=== PATIENT | male | born 1970 | race African-American/Black ===

== ENCOUNTER 2019-03-23 09:07 | Emergency (ER) | payer OTHER ==
[~2019-03-23] VITALS: Ht 190.5 cm; Wt 127.5 kg
[2019-03-23] MEDS ORDERED: TETANUS/DIPHTHERIA TOX ADULT 0.5 ML SYR ONE (09:49)
--- NOTE | 2019-03-23 10:04 | Diagnostic Imaging Report ---
Exam: Left fourth finger radiographs-3 views History: Smashed fourth finger. Comparison: None. Findings/Impression: Acute, minimally displaced, comminuted fracture of the fourth finger distal phalangeal tuft. Surrounding mild soft tissue edema. Bony alignment is otherwise unremarkable. Signed by: Dr. Ayden Enriquez MD on 03/23/2019 10:00 AM
[2019-03-23] MEDS ORDERED: TYLENOL # 31 EA PO (10:05)
[2019-03-23] MEDS ORDERED: KEFLEX500 MG PO (10:05)
[2019-03-23] MEDS ORDERED: TETANUS/DIPHTHERIA TOX ADULT 0.5 ML SYR IM ONE (10:15)
--- OUTSIDE RECORDS SUMMARY | 2019-03-28 12:21 | XMS REPORT ---
Author Author [facility] Address Unknown Phone Unavailable Care Team Providers Care Astrobiologist Name Role Phone Puja LAKHANI Unavailable Unavailable Problems This patient has no known problems. Allergies, Adverse Reactions, Alerts This patient has no known allergies or adverse reactions. Medications This patient has no known medications. Encounters Start Date/Time End Date/Time Encounter Type Admission Type Attending [facility] Care Department Encounter ID 2018-03-15 00:00:00 2018-03-15 00:00:00 Outpatient [facility] [id number] 2018-03-06 00:00:00 2018-03-06 00:00:00 Outpatient [facility] [id number] 2018-03-05 00:00:00 2018-03-05 00:00:00 Outpatient [facility] [id number] 2018-02-15 10:01:28 2018-02-15 10:01:28 Outpatient [facility] [id number] 2018-02-06 00:00:00 2018-02-06 00:00:00 Outpatient [facility] [id number] 2018-02-04 12:10:07 2018-02-04 12:10:07 Outpatient [facility] [id number] 2018-02-04 09:50:33 2018-02-04 09:50:33 Outpatient [facility] [id number] 2017-12-21 13:07:15 2017-12-21 13:07:15 Outpatient [facility] [id number] 2017-12-21 12:21:18 2017-12-21 12:21:18 Outpatient [facility] [id number] 2017-12-21 10:37:40 2017-12-21 10:37:40 Outpatient [facility] [id number] 2017-12-20 00:00:00 2017-12-20 00:00:00 Outpatient [facility] [id number] 2017-12-12 00:00:00 2017-12-12 00:00:00 Outpatient [facility] [id number] 2017-10-31 00:00:00 2017-10-31 00:00:00 Outpatient [facility] [id number] 2017-09-27 00:00:00 2017-09-27 00:00:00 Outpatient [facility] [id number] 2017-09-12 13:59:45 2017-09-12 13:59:45 Outpatient [facility] [id number] 2017-09-12 13:46:58 2017-09-12 13:46:58 Outpatient [facility] [id number] 2017-09-07 00:00:00 2017-09-07 00:00:00 Outpatient [facility] [id number] 2017-09-05 08:56:48 2017-09-05 08:56:48 Outpatient [facility] [id number] 2017-07-31 14:05:40 2017-07-31 14:05:40 Outpatient [facility] [id number] 2017-07-26 00:00:00 2017-07-26 00:00:00 Outpatient [facility] [id number] 2017-07-20 13:30:22 2017-07-20 13:30:22 Outpatient [facility] [id number] 2017-07-17 14:15:46 2017-07-17 14:15:46 Outpatient [facility] [id number] 2017-07-04 00:00:00 2017-07-04 00:00:00 Outpatient [facility] [id number] 2017-06-20 08:10:04 2017-06-20 08:10:04 Outpatient [facility] [id number] 2017-06-13 10:25:00 2017-06-13 10:25:00 Outpatient [facility] [id number] 2017-05-16 00:00:00 2017-05-16 00:00:00 Outpatient [facility] [id number] 2017-04-24 00:00:00 2017-04-24 00:00:00 Outpatient [facility] [id number] 2017-04-24 00:00:00 2017-04-24 00:00:00 Outpatient [facility] [id number] 2017-04-24 00:00:00 2017-04-24 00:00:00 Outpatient [facility] [id number] 2017-04-20 00:00:00 2017-04-20 00:00:00 Outpatient [facility] [id number] 2017-04-18 08:55:52 2017-04-18 08:55:52 Outpatient [facility] [id number] 2017-03-27 00:00:00 2017-03-27 00:00:00 Outpatient [facility] [id number] 2017-03-26 00:00:00 2017-03-26 00:00:00 Outpatient [facility] [id number] 2017-03-23 00:00:00 2017-03-23 00:00:00 Outpatient [facility] [id number] 2017-03-20 10:38:34 2017-03-20 10:38:34 Outpatient [facility] [id number] 2017-03-15 00:00:00 2017-03-15 00:00:00 Outpatient [facility] [id number] 2017-03-08 00:00:00 2017-03-08 00:00:00 Outpatient [facility] [id number] 2017-03-08 00:00:00 2017-03-08 00:00:00 Outpatient [facility] [id number] 2017-03-07 09:27:57 2017-03-07 09:27:57 Outpatient [facility] [id number] 2017-03-07 09:11:15 2017-03-07 09:11:15 Outpatient [facility] [id number] 2017-03-07 00:00:00 2017-03-07 00:00:00 Outpatient [facility] [id number] 2017-03-07 00:00:00 2017-03-07 00:00:00 Outpatient [facility] [id number] 2017-02-21 09:41:24 2017-02-21 09:41:24 Outpatient [facility] [id number] 2017-02-19 00:00:00 2017-02-19 00:00:00 Outpatient [facility] [id number] 2017-02-14 00:00:00 2017-02-14 00:00:00 Outpatient [facility] [id number] 2017-02-06 00:00:00 2017-02-06 00:00:00 Outpatient [facility] [id number] 2017-02-05 09:21:29 2017-02-05 09:21:29 Outpatient [facility] [id number] 2017-01-30 00:00:00 2017-01-30 00:00:00 Outpatient [facility] [id number] 2017-01-29 11:41:50 2017-01-29 11:41:50 Outpatient [facility] [id number] 2017-01-24 10:31:25 2017-01-24 10:31:25 Outpatient [facility] [id number] 2017-01-23 10:59:17 2017-01-23 10:59:17 Outpatient [facility] [id number] 2017-01-23 10:20:05 2017-01-23 10:20:05 Outpatient [facility] [id number] 2017-01-23 10:09:19 2017-01-23 10:09:19 Outpatient [facility] [id number] Results Test Description Test Time Test Comments Text Results Atomic Results Result Comments FINGER LT - HOPD 2019-03-23 09:57:00 [place] [id number] Patient Name: AMELIA STEELE MR #: [id number] : 1970 Age/Sex: 48/M Req #: [id number] [facility] Physician: Ordered by: LOPEZ LAKHANI MD Report #: [id number] Location: [facility] Room/Bed: Procedure: [id number] HOPD/FINGER LT - HOPD Exam Date: 03/23/19 Exam Time: 924 REPORT STATUS: Signed Exam: Left fourth finger radiographs-3 views History: Smashed fourth finger. Comparison: None. Findings/Impression: Acute, minimally displaced, comminuted fracture of the fourth finger distal phalangeal tuft. Surrounding mild soft tissue edema. Bony alignment is otherwise unremarkable. Signed by: Dr. Nida Tellez MD on 03/23/2019 10:00 AM Dictated By: NIDA TELLEZ MD 1000 Transcribed By: JEANMARIE on 03/23/19 1000 COPY TO: LOPEZ LAKHANI MD
== END 2019-03-23 10:20 | disposition home or self-care (01) ==
LOC: FSED 09:07
DX: S62.635A Displaced fracture of distal phalanx of left ring finger, initial encounter for closed fracture (principal); W23.1XXA Caught, crushed, jammed, or pinched between stationary objects, initial encounter; Y92.008 Other place in unspecified non-institutional (private) residence as the place of occurrence of the external cause; E11.9 Type 2 diabetes mellitus without complications; Z79.84 Long term (current) use of oral hypoglycemic drugs
CPT/HCPCS: 90471; 90714; 99284

== ENCOUNTER 2020-03-25 09:39 | Observation (INO) | payer OTHER ==
[~2020-03-25] VITALS: Ht 185.4 cm; Wt 122.5 kg
[~2020-03-25 09:39] MED LIST: KEFLEX500 MG PO; TYLENOL # 31 EA PO
[2020-03-25] MEDS ORDERED: HYDROCODONE/APAP 5MG-325MG TAB PO ONE (10:00)
[2020-03-25] MEDS ORDERED: HYDROCODONE/APAP 5MG-325MG TAB ONE (10:20)
[2020-03-25] MEDS ORDERED: ONDANSETRON HCL INJ 2MG/ML 2ML 2 MG/ML VIAL IV ONE (10:46)
[2020-03-25] MEDS ORDERED: ONDANSETRON HCL 4 MG ORAL DISINTEGRATING TAB ONE (10:55)
[2020-03-25] MEDS ORDERED: CLONIDINE HCL 0.1 MG TAB ONE (10:56)
[2020-03-25] MEDS ORDERED: MECLIZINE HCL 12.5 MG TAB PO ONE (11:00)
[2020-03-25] MEDS ORDERED: CLONIDINE HCL 0.2 MG TAB PO ONE (11:00)
[2020-03-25] MEDS ORDERED: ASPIRIN 325 MG TAB PO ONE (11:30)
[2020-03-25] MEDS ORDERED: ASPIRIN 81 MG CHEW TAB PO ONE (11:30)
[2020-03-25] MEDS ORDERED: ONDANSETRON HCL INJ 2MG/ML 2ML 2 MG/ML VIAL IV PRN (11:30)
[2020-03-25] MEDS ORDERED: SODIUM CHLORIDE FLUSH 10 ML SYR INJ PRN (11:30)
[2020-03-25] MEDS ORDERED: ASPIRIN 325 MG TAB ONE (11:59)
[2020-03-25 13:12] VITALS: BP 172/104
[2020-03-25] MEDS: HYDRALAZINE HCL 20 MG/ML VIAL IV PRN (14:16)
[2020-03-25] MEDS ORDERED: ACETAMINOPHEN 325 MG TAB PO PRN (14:45)
[2020-03-25 15:21] VITALS: BP 105/41
[2020-03-25] MEDS ORDERED: DEXTROSE 50% SYRINGE 50 ML IV PRN (16:00)
[2020-03-25 16:09] VITALS: BP 105/41
[2020-03-25] MEDS: INSULIN LISPRO 100 UNIT/1 ML 3ML VIAL SQ SCH ×2 (16:30→20:20)
[2020-03-25 17:28] VITALS: BP 105/41
[2020-03-25] MEDS ORDERED: SODIUM CHLORIDE 0.9% 100 ML ONE (19:29)
[2020-03-25] MEDS ORDERED: IOPAMIDOL 370 MG/ML 200 ML INFUS..BTL INJ ONE (19:29)
[2020-03-25 20:05] VITALS: BP 158/72
[2020-03-25 20:36] VITALS: BP 158/72
[2020-03-26] VITALS (9 sets, daily range): BP systolic 140–165; BP diastolic 62–100
[2020-03-26 06:35] LABS: CREATINE KINASE MB 1.4 ng/mL (0-5.0)
[2020-03-26 06:54] LABS: ANION GAP 15.4 mmol/L (8-16); BLOOD UREA NITROGEN 20 mg/dL (7-26); BUN/CREATININE RATIO 15 (6-25); CALCIUM 8.9 mg/dL (8.4-10.2); CARBON DIOXIDE 22 mmol/L (22-29); CHLORIDE 106 mmol/L (98-107); CREATININE, SERUM 1.37 mg/dL (0.72-1.25); EST GLOMERULAR FILTRATION RATE > 60 ML/MIN (60-); GLUCOSE 100 mg/dL (74-118); POTASSIUM 4.4 mmol/L (3.5-5.1); SODIUM 139 mmol/L (136-145)
[2020-03-26] MEDS: INSULIN LISPRO 100 UNIT/1 ML 3ML VIAL SQ SCH ×4 (07:30→20:52)
[2020-03-26] MEDS: ASPIRIN 325 MG TAB EC PO SCH (08:35)
[2020-03-26] MEDS ORDERED: AMLODIPINE BESYLATE 5 MG TAB PO SCH ×2 (09:00)
[2020-03-26] MEDS ORDERED: ASPIRIN 81 MG ENTERIC COATED PO SCH (09:00)
[2020-03-26] MEDS ORDERED: AMLODIPINE BESYLATE 5 MG TAB PO ONE (13:30)
[2020-03-26] MEDS ORDERED: ONDANSETRON HCL 4 MG ORAL DISINTEGRATING TAB PO PRN (13:45)
[2020-03-26] MEDS: HYDROCHLOROTHIAZIDE 25 MG TAB PO SCH (13:50)
[2020-03-26] MEDS: HYDRALAZINE HCL 20 MG/ML VIAL IV PRN (15:22)
[2020-03-27] VITALS: BP 146/92
[2020-03-27 04:00] VITALS: BP 175/93
[2020-03-27] MEDS: HYDRALAZINE HCL 20 MG/ML VIAL IV PRN (05:38)
[2020-03-27 07:07] LABS: BASOPHILS # (AUTO) 0.1 (0.0-0.1); BASOPHILS % 0.8 % (0.0-1.0); EOSINOPHILS # (AUTO) 0.1 (0.0-0.4); EOSINOPHILS % 1.8 % (0.0-6.0); HEMOGLOBIN 17.6 g/dL (14.0-18.0); LYMPHOCYTES # (AUTO) 2.7 (1.0-3.2); LYMPHOCYTES % 40.4 % (18.0-39.1); MEAN CORPUSCULAR HEMOGLOBIN 31.7 pg (28-32); MEAN CORPUSCULAR HGB CONC 33.8 g/dL (31-35); MEAN CORPUSCULAR VOLUME 93.5 fL (81-99); MONOCYTES # (AUTO) 0.7 (0.2-0.8); MONOCYTES % 10.3 % (4.4-11.3); NEUTROPHILS % 46.1 % (38.7-80.0); PLATELET COUNT 253 x10e3/uL (140-360); RED BLOOD COUNT 5.56 x10e6/uL (4.3-5.7); RED CELL DISTRIBUTION WIDTH 14.3 % (11.7-14.4)
[2020-03-27 07:29] LABS: ALANINE AMINOTRANSFERASE 14 IU/L (0-55); ALBUMIN 4.3 g/dL (3.5-5.0); ALBUMIN/GLOBULIN RATIO 1.2 (0.8-2.0); ALKALINE PHOSPHATASE 105 IU/L (40-150); ANION GAP 17.1 mmol/L (8-16); BLOOD UREA NITROGEN 19 mg/dL (7-26); BUN/CREATININE RATIO 14 (6-25); CALCIUM 9.4 mg/dL (8.4-10.2); CARBON DIOXIDE 20 mmol/L (22-29); CHLORIDE 104 mmol/L (98-107); CHOL/HDL RATIO 6.9 (3.9-4.7); CHOLESTEROL 281 MD/DL (0-199); CREATININE, SERUM 1.33 mg/dL (0.72-1.25); EST GLOMERULAR FILTRATION RATE > 60 ML/MIN (60-); GLUCOSE 121 mg/dL (74-118); HDL CHOLESTEROL 41 MG/DL (40-60); LDL CHOLESTEROL 202 MG/DL (60-130); POTASSIUM 4.1 mmol/L (3.5-5.1); SODIUM 137 mmol/L (136-145); TRIGLYCERIDES 188 MG/DL (0-149)
[2020-03-27] MEDS: INSULIN LISPRO 100 UNIT/1 ML 3ML VIAL SQ SCH (07:30)
[2020-03-27 07:41] LABS: THYROID STIMULATING HORMONE 2.707 uIU/mL (0.350-4.940)
[2020-03-27 08:00] VITALS: BP 141/80
[2020-03-27 08:04] VITALS: BP 141/80
[2020-03-27] MEDS: ASPIRIN 325 MG TAB EC PO SCH (08:04)
[2020-03-27] MEDS: HYDROCHLOROTHIAZIDE 25 MG TAB PO SCH (08:04)
[2020-03-27] MEDS ORDERED: AMLODIPINE BESYLATE 10 MG TAB PO SCH (09:00)
[2020-03-27] MEDS ORDERED: ASPIRIN325 MG PO (09:12)
[2020-03-27] MEDS ORDERED: AMLODIPINE BESY10 MG PO (09:12)
== END 2020-03-27 10:50 | disposition home or self-care (01) ==
LOC: FSED 10:00 → ERHOLD 11:22 → MED/SURG2 12:43
PROVIDERS: ADMIT Internal Medicine; ATTEND Internal Medicine
DX: R42 Dizziness and giddiness (principal); S09.8XXA Other specified injuries of head, initial encounter; I10 Essential (primary) hypertension; E11.9 Type 2 diabetes mellitus without complications; F17.210 Nicotine dependence, cigarettes, uncomplicated; Z91.81 History of falling; R00.1 Bradycardia, unspecified; Z91.14 Patient's other noncompliance with medication regimen; I16.0 Hypertensive urgency; E66.01 Morbid (severe) obesity due to excess calories; Z68.35 Body mass index [BMI] 35.0-35.9, adult; Z20.828 Contact with and (suspected) exposure to other viral communicable diseases
CPT/HCPCS: 36415 ×3; 70450; 70496; 70498; 70551; 72125; 80048; 80053 ×2; 80061; 82550 ×2; 82553 ×2; 82948 ×3; 83036; 84443; 84484 ×2; 85025 ×2; 93005 ×2; 93306; 97116; 97139; 97161; 97530; 99284; G0378 ×3; J0360 ×3; J7050; J8597; Q0162; Q9967; U0002

== ENCOUNTER 2021-08-02 17:38 | Emergency (ER) | payer OTHER ==
[~2021-08-02] VITALS: Ht 188 cm; Wt 120.7 kg
[~2021-08-02 17:38] MED LIST changes: +AMLODIPINE BESY10 MG PO; +ASPIRIN325 MG PO
[2021-08-02] MEDS ORDERED: NAPROSYN500 MG PO (19:58)
[2021-08-02] MEDS ORDERED: CYCLOBENZAPRINE10 MG PO (19:59)
[2021-08-02 20:12] VITALS: BP 166/100
== END 2021-08-02 20:12 | disposition home or self-care (01) ==
LOC: FSED 19:45
DX: S13.4XXA Sprain of ligaments of cervical spine, initial encounter (principal); M25.511 Pain in right shoulder; V43.53XA Car driver injured in collision with pick-up truck in traffic accident, initial encounter; Y92.488 Other paved roadways as the place of occurrence of the external cause; I10 Essential (primary) hypertension; E11.9 Type 2 diabetes mellitus without complications; Z91.14 Patient's other noncompliance with medication regimen
CPT/HCPCS: 99282

== ENCOUNTER 2024-01-18 15:34 | Emergency (ER) | payer OTHER ==
[~2024-01-18] VITALS: Ht 188 cm; Wt 124.9 kg
[~2024-01-18 15:34] MED LIST changes: +CYCLOBENZAPRINE10 MG PO; +NAPROSYN500 MG PO
[2024-01-18] MEDS ORDERED: IBUPROFEN200 MG PO (16:21)
[2024-01-18] MEDS ORDERED: CEFDINIR300 MG PO (16:21)
[2024-01-18] MEDS ORDERED: DIPHENHYDRAMINE25 M2 PO (16:21)
[2024-01-18] MEDS ORDERED: TYLENOL325 MG PO (16:21)
[2024-01-18] MEDS ORDERED: CIPRO HC OTIC S10 ML LEFT EAR (16:21)
[2024-01-18] MEDS: ACETAMINOPHEN 325 MG TAB PO ONE (16:44)
[2024-01-18] MEDS: IBUPROFEN 200 MG TAB PO ONE (16:44)
[2024-01-18] MEDS: CEFTRIAXONE 1 GM VIAL IM ONE (16:44)
[2024-01-18 17:21] VITALS: PULSE 58; RESP 18; TEMP 97.8; O2SAT 99
== END 2024-01-18 17:36 | disposition home or self-care (01) ==
LOC: FSED 15:45
DX: H60.92 Unspecified otitis externa, left ear (principal); I10 Essential (primary) hypertension; E11.9 Type 2 diabetes mellitus without complications; F17.210 Nicotine dependence, cigarettes, uncomplicated
CPT/HCPCS: 96372; 99283; J0696

== ENCOUNTER 2024-01-19 23:34 | Emergency (ER) | payer OTHER ==
[~2024-01-19] VITALS: Ht 188 cm; Wt 124.7 kg
[~2024-01-19 23:34] MED LIST changes: +CEFDINIR300 MG PO; +CIPRO HC OTIC S10 ML LEFT EAR; +DIPHENHYDRAMINE25 M2 PO; +IBUPROFEN200 MG PO; +TYLENOL325 MG PO
[2024-01-19 23:40] VITALS: PULSE 60; RESP 18; TEMP 97.9; O2SAT 99
[2024-01-19] MEDS ORDERED: ONDANSETRON HCL INJ 2MG/ML 2ML 2 MG/ML VIAL IV STA (23:48)
[2024-01-19] MEDS ORDERED: BELLADONNA ALK/PHENOBARBITAL 5 ML UDC PO STA (23:48)
[2024-01-19] MEDS ORDERED: HEPARIN 25,000 UNIT/D5W 250ML 25,000 UNIT in DEXTROSE 5% 250ML 250 ML IV STA (23:54)
[2024-01-20] MEDS ORDERED: HEPARIN SOD (PORCINE) 5,000 UNIT/ML VIAL IV ONE
[2024-01-20] MEDS ORDERED: SODIUM CHLORIDE 0.9% 1000ML 1,000 ML IV SCH
[2024-01-20] MEDS ORDERED: LIDOCAINE VISC 2% SOLN 15 ML UDC PO ONE
[2024-01-20] MEDS ORDERED: MAGNESIUM/ALUMINUM/SIMETHICONE 30 ML UDC PO ONE
[2024-01-20] MEDS ORDERED: ONDANSETRON HCL INJ 2MG/ML 2ML 2 MG/ML VIAL ONE (00:35)
[2024-01-20] MEDS: Morphine 4mg INJECTION 4 MG/ML INJ IV ONE (00:41)
[2024-01-20] MEDS: ASPIRIN 81 MG CHEW TAB PO ONE (00:41)
[2024-01-20] MEDS: HEPARIN 25,000 UNIT/D5W 250ML 250 ML IV SCH (06:42)
== END 2024-01-20 00:37 | disposition other institution (70) ==
LOC: FSED 23:37
DX: R07.9 Chest pain, unspecified (principal); I21.3 ST elevation (STEMI) myocardial infarction of unspecified site; I10 Essential (primary) hypertension; E11.65 Type 2 diabetes mellitus with hyperglycemia
CPT/HCPCS: 71045; 80048; 84484; 85025; 99284; J1644; J2270; J2405